=== PATIENT | female | born 1985 | race Caucasian/White ===

== ENCOUNTER 2020-08-04 02:13 | Inpatient (IN) | payer MEDICAID ==
[2020-08-04] MEDS ORDERED: OXYTOCIN/SODIUM CHLORIDE 500 ML IV PRN (02:46)
[2020-08-04] MEDS ORDERED: METHYLERGONOVINE 0.2 MG/ML VIAL IM PRN (02:46)
[2020-08-04] MEDS ORDERED: TRANEXAMIC ACID 1,000 MG in SODIUM CHLORIDE 0.9% 100ML 100 ML IV PRN (02:46)
[2020-08-04] MEDS ORDERED: CARBOPROST TROMETHAMINE 250 MCG/ML AMP IM PRN (02:46)
[2020-08-04] MEDS ORDERED: SODIUM CHLORIDE FLUSH 0.9% 10 ML SYRINGE IVP PRN (02:46)
[2020-08-04] MEDS ORDERED: OXYTOCIN 10 UNIT/ML VIAL IM PRN (02:46)
[2020-08-04] MEDS ORDERED: LIDOCAINE-MPF 1% 30 ML VIAL ID PRN (02:46)
[2020-08-04] MEDS ORDERED: miSOPROStoL 200 MCG TABLET BC PRN (02:46)
[2020-08-04] MEDS ORDERED: NALOXONE 0.4 MG/ML VIAL IVP PRN (02:54)
[2020-08-04] MEDS ORDERED: NALBUPHINE 10 MG/ML AMP IVP PRN (02:54)
[2020-08-04] MEDS ORDERED: diphenhydrAMINE INJ 50 MG/ML VIAL IVP PRN (02:54)
[2020-08-04] MEDS ORDERED: ePHEDrine 50 MG/ML VIAL IVP PRN (02:54)
[2020-08-04] MEDS ORDERED: ONDANSETRON 4 MG/2 ML VIAL IVP PRN (02:54)
[2020-08-04] MEDS ORDERED: METOCLOPRAMIDE 10 MG/2 ML VIAL IVP PRN (02:54)
[2020-08-04] MEDS ORDERED: LACTATED RINGERS 1,000 ML IV SCH (03:00)
[2020-08-04 03:13] LABS: HGB - HEMOGLOBIN 14.1 g/dL (12.0-16.0); LYMPHOCYTES % (AUTO) 13.8 %; MEAN CORPUSCULAR HEMOGLOBIN 32.2 pg (27.0-31.0); MEAN CORPUSCULAR HGB CONC 34.7 g/dL (32.0-36.0); MEAN CORPUSCULAR VOLUME 92.7 fL (81.0-99.0); MEAN PLATELET VOLUME 10.2 fL (7.9-10.8); MONOCYTES % (AUTO) 5.4 %; PLT - PLATELET COUNT 137 10^3/uL (130-450); RED BLOOD COUNT 4.38 10^6/uL (4.20-5.40); RED CELL DISTRIBUTION WIDTH 14.6 % (12.0-15.0); WHITE BLOOD COUNT 12.8 x10^3/uL (4.8-10.8)
[2020-08-04 03:14] LABS: BASOPHILS % (AUTO) 0.3 %; EOSINOPHILS # (AUTO) 0.1 10^3/uL (0.0-0.7); EOSINOPHILS % (AUTO) 0.5 %; LYMPHOCYTES # (AUTO) 1.8 10^3/uL (1.5-3.5); MONOCYTES # (AUTO) 0.7 10^3/uL (0.0-1.0); NEUTROPHILS # (AUTO) 10.1 10^3/uL (1.5-6.6)
--- NOTE | 2020-08-04 03:23 | HISTORY & PHYSICAL EXAMINATION ---
Admit History - Visit Reason Visit Reason: Contractions - : 4 Parity: 2 Premature: 0 Ectopic: 0 : 1 Care: positive: Other ([facility]- after transfer of care at 38 weeks. Care has been adequate) Risk/History: positive: Genital herpes (on acyclovir, no active lesions), Other (episx2, one Vac assist) Complications This : positive: None - Mother's Labs Mother's Blood Type: positive: O Mother's RH: positive: Negative GBS: positive: Group B Step Negative Rubella Status: positive: Immune - Other Maternal History Other Maternal History: 35yo at 40.2wks gestation who presents to Labor and Delivery for complaints of contractions that started yesterday morning, but got noticeably more intense around 1900. Reports movement Denies VB/LOF care-transfered to [facility] at 38.0 weeks following a displacement from the [facility], previous care has been adequate Complications *Rh Negative- Rhogam on 06/04/2020 Dating Criteria *BEE by LMP for 08/02/2020 OB Hx *G1: 2008- TAB *G2: 2010 - male 8#1oz. Episiotomy/vacuum *G3: 2018 - female 9#4oz. Episiotomy *G4: current Medications * vitamin-daily *Famotidine 20mg- daily *Acyclovir 400mg- daily Allergies *NKDA Medical History *HSV-2: positive Surgical History *None Family History *Non contributory Social History *Does not have custody of first child, who lives with her mother. Relationship is amicable and amends are being made. Does have custody of daughterTricia and appropriate maternal behaviors are noted in clinic. 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 Desires epidural. FOB: Andrew. Baby BOY: Walter Santamaria. (Daughter Tricia at home. History of two epis) pp contraception: Desires Christy PAP: 12/27/2019- HPV neg (awaiting pathology report) SVE per RN: 6cm/bulging bag Vertex by Naima EFW by naima: 7.5# FHTs- 130 baseline with periods of moderate variability without accelerations, otherwise moderate with 15x15 accels, and no decels noted Assessment *35yo at 40.2wks gestation who presents to Labor and Delivery in active labor * Heart Tones- Category I Plan *Admit to L&D *Monitoring- Continuous *Comfort measures available- position changes, whirlpool tub, fentanyl, and epidural per maternal preference *Diet/Activity- per maternal preference *Anticipate Meds/Allgy - Allergies Allergies/Adverse Reactions: Allergies Allergy/AdvReac Type Severity Reaction Status Date / Time No Known Drug Allergies Allergy Verified 08/04/20 02:51 Review of Systems - All Other Systems All Other Systems: reports: Reviewed and negative Physical - Abdominal Exam Vital Signs: Temp Pulse Resp BP Pulse Ox 36.7 C 97 20 132/83 H 98 08/04/20 02:21 08/04/20 02:21 08/04/20 02:21 08/04/20 02:21 08/04/20 02:21 Contraction Frequency (min/apart): 2-4 Contraction Intensity: positive: Moderate to strong Uterine Resting Tone: positive: Soft - Monitoring Heart Rate Baseline: 130 Strip Review: positive: Category I - Presentation Presentation: positive: Vertex - Vaginal Exam Membranes: positive: Membranes intact Dilation (in cm): 6 Effacement (%): 80 Station: positive: -1 Cervical Position: positive: Midposition Plan for Labor - Plan For Labor I expect patient to be DC'd or transferred within 96 hours.: Yes
--- NOTE | 2020-08-04 05:14 | DELIVERY NOTE ---
Delivery Note - Labor Labor: positive: Spontaneous - Delivery Method Delivery Method: positive: Spontaneous vaginal delivery - Presentation Presentation: positive: Vertex - Nuchal Cord Nuchal Cord: positive: Present (loose, sommersaulted. True knot.) - Amniotic Fluid Description Amniotic Fluid Description: positive: Clear - Laceration Laceration: positive: 1st degree (left labial), 2nd degree (perineal) - Suture Suture Type: positive: Vicryl Suture Size: positive: 2-0, 3-0 - Delivery Outcome Delivery Outcome: positive: Livebirth - [place] : positive: Placed in direct skin contact with mother, Stimulated, [place] used [place] sex: positive: Male : 8 : 9 - Cord Cord: positive: 3 vessels - Placenta Placenta: positive: Intact, Spontaneous (trailing membranes) - Estimated Blood Loss Estimated Blood Loss (in cc): 250 - Post Delivery Events Post Delivery Events: positive: No post delivery events - Delivery Comments (Free Text/Narrative) Delivery Comments (Free Text/Narrative): Note: Labor: This 35 year old, , @40.2wks gestation by LMP, presented @ 0200 in active labor. Cervix was 6/80/-1/bulging bag and vertex. FHR pattern demonstrated 130 baseline in a Category I pattern. Normal labor course. Epidural desired, however, due to rapid progression, unable to obtain. Spontaneous pushing was noted shortly after 8/90/0 exam, then bulging bag was noted outside of the vagina at 0348. : Normal of a 3940gm male on 08/04/2020 @ 0351. Baby came in amniotic sac, which ruptured on delivery of body, fluid was moderate and clear. Nuchal present, and loose. True knot noted. The was placed on maternal abdomen, stimulated, dried and placed skin to skin. Apgars 8 at one minute and 9 at five minutes. The umbilical cord was allowed to stop pulsating at which time it was doubly clamped by CNM and cut by FOB. Pitocin administered via IV for hemostasis. Fundal massage and gentle cord traction applied for active third stage management. Cord blood was obtained. Placenta delivered spontaneously and intact at 0355, with trailing membranes at 0358. Three vessel cord. EBL 250mL. Fourth Stage: Uterine fundus firm and without excessive bleeding. The perineum, vagina, and cervix were inspected and found to have sustained a second degree perineal laceration and first degree left labial, which were repaired with the use of 2% lidocaine for local anesthesia, and were repaired under sterile conditions in standard fashion using a 2-0 vicryl and 3-0 vicryl. Vaginal examination following repair was done. Tissues well approximated. initiated. Family bonding well. Both mother and baby are in stable condition.
[2020-08-04] MEDS ORDERED: HYDROCORTISONE 1% CREAM 28 GM TUBE PR PRN (05:20)
[2020-08-04] MEDS ORDERED: WITCH HAZEL/GLYCERIN 1 PAD TOP PRN (05:20)
[2020-08-04] MEDS: ACETAMINOPHEN 500 MG TABLET PO SCH ×3 (06:01→21:43)
[2020-08-04] MEDS: IBUPROFEN 600 MG TABLET PO SCH ×3 (06:01→20:14)
[2020-08-04] MEDS ORDERED: SODIUM CHLORIDE FLUSH 0.9% 10 ML SYRINGE IVP SCH (09:00)
--- NOTE | 2020-08-04 18:04 | PROVIDER PROGRESS NOTE ---
Subjective - Subjective Pt reports feeling: Improved Subjective: Final Progress Note S: Siena is resting in bed, with baby asleep on her chest. She reports as going well, although they are still improving their technique. She denies significant pain in her abdomen or perineum, but reports taking tylenol and ibuprofen when available "just in case." Reports her bleeding as li ght, and reports being able to urinate without effort. and Andrew desire to go home as soon as appropriate for baby, due to wanting to get back to their 16month old daughter, Tricia, and for Andrew to be able to work. O: Fundus firm, lochia light VSS No breast tenderness or nipple tissue damage Maternal Blood Type: O neg; Baby Blood Type: A neg A: 34yp on Day 1 s/p this morning at 0351. Rhogam not indicated due to baby blood type Pain well controlled with PO meds Perineum healing within expected limits well P: Continue with routine care Evaluate for discharge home after 24 hours per Peds Objective - Vital Signs/Intake & Output Vital Signs: Vital Signs x48h Temp Pulse Resp BP 08/04/20 10:36 36.1 C L 88 18 130/78 Intake & Output: Intake & Output 08/01/20 08/02/20 08/03/20 08/04/20 23:59 23:59 23:59 23:59 Intake Total 2050 Output Total 600 Balance 1450 - Lab Results Fish Bones: 08/04/20 03:05 Other Labs: Lab Results x24hrs 08/04/20 08/04/20 Range/Units 03:05 03:05 WBC 12.8 H (4.8-10.8) x10^3/uL RBC 4.38 (4.20-5.40) 10^6/uL Hgb 14.1 (12.0-16.0) g/dL Hct 40.6 (37.0-47.0) % MCV 92.7 (81.0-99.0) fL MCH 32.2 H (27.0-31.0) pg MCHC 34.7 (32.0-36.0) g/dL RDW 14.6 (12.0-15.0) % Plt Count 137 (130-450) 10^3/uL MPV 10.2 (7.9-10.8) fL Neut # (Auto) 10.1 H (1.5-6.6) 10^3/uL Lymph # (Auto) 1.8 (1.5-3.5) 10^3/uL [place] # (Auto) 0.7 (0.0-1.0) 10^3/uL Eos # (Auto) 0.1 (0.0-0.7) 10^3/uL Baso # (Auto) 0.0 (0.0-0.1) 10^3/uL Absolute Nucleated RBC 0.00 x10^3/uL Nucleated RBC % 0.0 /100WBC Blood Type O NEGATIVE Antibody Screen NEGATIVE
[2020-08-05] MEDS: IBUPROFEN 600 MG TABLET PO SCH ×2 (02:05→08:05)
[2020-08-05] MEDS: ACETAMINOPHEN 500 MG TABLET PO SCH (08:06)
--- NOTE | 2020-08-05 08:34 | Discharge Plan ---
Discharge Plan Problem Reviewed?: Yes Disposition: Home, Self Care Condition: Good Diet: Regular Activity Restrictions: No Restrictions Shower Restrictions: No Driving Restrictions: No No Smoking: If you smoke, Please STOP! Call for help.
[2020-08-05 10:26] VITALS: BP 115/68
--- NOTE | 2020-08-05 10:43 | Labor Flowsheet ---
Labor Flowsheet Datetime Report Generated by CPN: 08/05/2020 10:43 Datetime: 08/05/2020 08:10 VITAL SIGNS NBP Sys/Ling/Mean (mmHg): 115 : 68 : 75 Pulse: 85 SpO2 (%): 100 Datetime: 08/04/2020 04:45 Respirations: 20 Datetime: 08/04/2020 04:31 Temperature (C): 36.7 Temperature Route: Oral Datetime: 08/04/2020 04:01 MEDICATIONS Medication Comments: Lidocaine for repair Datetime: 08/04/2020 03:58 Stage 2 Comments: trailing membranes removed with ring forceps by TRAM Brooks Datetime: 08/04/2020 03:55 Membranes Ruptured Date/Time: 08/04/2020 03:51 Datetime: 08/04/2020 03:51 Membrane Status: Ruptured Membranes Rupture Method: Spontaneous Amniotic Fluid Color: Clear Amniotic Fluid Amount: Large Amniotic Fluid Odor: Normal Pool: Positive Membrane Comments: SROM with delivery, born in intact caul with BOW SROM with delivery of body Datetime: 08/04/2020 03:49 PAIN Pain Scale: 10 Pain Presence: Intermittent Pain Type: Contraction; Pressure LaborFlag: Labor Datetime: 08/04/2020 03:48 VAGINAL EXAM Dilatation (cm): 10.0 Effacement (%): 100 Station: 3 Exam by: Todd CNM Vaginal Exam Comments: BBOW at introitus Datetime: 08/04/2020 03:47 Provider Reviewed Strip: No STAGE 2 Pushing: Urge to Push; Involuntary Pushing Pushing Position: Pushing with Contractions Pushing Progress: Descent with Pushing COMMUNICATION Communication: Provider at Bedside Provider Notified (Name): Todd CNM Notification Reason: Status Update; Status; Labor Status; Membrane Status; Uterine Activity Datetime: 08/04/2020 03:45 UTERINE ACTIVITY Monitor Mode: External Frequency (min): 2-2.5 Quality: Strong Duration (sec): 60-90 Pattern: Normal: <= 5 Contractions in 10 Minutes ASSESSMENT A Monitor Mode: Telemetry FHR Baseline Rate : 125 FHR Baseline Changes: No Baseline Change Variability: Moderate 6-25 bpm Accelerations: None Decelerations: Variable Actions for Decelerations: Sterile Vaginal Exam; Provider Notified Category: Category II Comments: Pt states urge to push Datetime: 08/04/2020 03:40 Cervix, Consistency: Soft Cervix, Position: Anterior Datetime: 08/04/2020 03:34 Comfort Measures: Breathing/Relaxation; Coaching; Family Support Datetime: 08/04/2020 03:20 PATIENT CARE IV/Blood Work: IV Started; IV Bolus Started Datetime: 08/04/2020 03:13 TEACHING Instructional Method: Verbal; Patient Instructed; Family/Support Person Instructed; Verbalized Unde rstanding Plan of Care: Plan of Care Discussed; Vaginal Delivery Unit Routine: [place] to Room; Infant Security; Phone/Cell Phone Use; Photography; Unit Personnel; H andwashing; Flu/Illness Precautions; Monitoring; IV Pumps; Safety/Fall Risk Prevention; Diet/Nu trition Services; Bathroom Privileges; Routine Time Outs; Medications Pain Management: Epidural; Pain Scale/Goals; Comfort Measures Datetime: 08/04/2020 03:11 Patient Care Comments: Labs drawn Datetime: 08/04/2020 03:00 Resting Tone (Palpate): Relaxed
--- NOTE | 2020-08-05 14:28 | DISCHARGE SUMMARY ---
Physician: Ciera Casanova MD DATE OF ADMISSION: 08/04/2020 DATE OF DISCHARGE: 08/05/2020 ADMISSION DIAGNOSES: Spontaneous labor at term. DISCHARGE DIAGNOSES: Status post spontaneous vaginal delivery. OPERATIONS AND PROCEDURES: On 08/04/2020, spontaneous vaginal delivery of a liveborn male. Estimate d blood loss was 250 mL and she had a second-degree laceration that was repaired. HOSPITAL COURSE: Patient was admitted in active spontaneous labor. She progressed rapidly and deliv ered uncomplicated. By day 1, she was eagerly requesting discharge home. She was eating, ambulating, urinating, and and defecating without problems. Her pain was well control led, mood was good, and she did not having any heavy bleeding. DISCHARGE EXAMINATION: Afebrile with normal vital signs. Alert and smiling, in no apparent distress . Abdomen is soft, nontender, nondistended. Fundus is nontender, and 2 cm below the umbilicus, firm . No lower extremity clubbing, cyanosis or edema. Post- hematocrit was not required as her ad mission hematocrit was 40.6. She was Rh negative and so was her baby, so she did not receive RhoGAM. She is rubella immune and has received her Tdap and flu vaccines. DISCHARGE DISPOSITION: Home. CONDITION: Good. FOLLOWUP: One week for a check. MEDICATIONS 1. Ibuprofen. 2. Colace p.r.n. TD: 08/05/2020 08:40
== END 2020-08-05 09:40 | disposition home or self-care (01) | DRG 807 ==
LOC: WFO 02:13 → FBP 02:15 → WFO 02:45 → FBP 02:46
PROVIDERS: ADMIT Advanced Practice Midwife; ATTEND Advanced Practice Midwife
PROC: 10E0XZZ Delivery of Products of Conception, External Approach (ICD-10-PCS; principal; 2020-08-04)
PROC: 0KQM0ZZ Repair Perineum Muscle, Open Approach (ICD-10-PCS; 2020-08-04)
DX: O98.32 Other infections with a predominantly sexual mode of transmission complicating childbirth (principal); Z37.0 Single live birth; O70.1 Second degree perineal laceration during delivery; O69.2XX0 Labor and delivery complicated by other cord entanglement, with compression, not applicable or unspecified; Z3A.40 40 weeks gestation of pregnancy
CPT/HCPCS: 36415; 85025; 86850; 86900; 86901; 99213; A9270; J7120

== ENCOUNTER 2021-11-04 08:00 | Outpatient (CLI) | payer MEDICAID | END 2021-11-04 23:59 | LOC: LAB 08:00 | PROVIDERS: ATTEND Family Medicine | DX: J06.9 Acute upper respiratory infection, unspecified (principal); Z20.822 Contact with and (suspected) exposure to COVID-19 ==

== ENCOUNTER 2021-11-19 08:00 | Outpatient (CLI) | payer MEDICAID | END 2021-11-19 23:59 | LOC: LAB 08:00 | PROVIDERS: ATTEND Physician Assistant Medical | DX: U07.1 COVID-19 (principal) ==

== ENCOUNTER 2022-10-24 17:45 | Outpatient (CLI) | payer MEDICAID | END 2022-10-24 17:46 | disposition critical access hospital (66) | LOC: EMS 17:45 | DX: R07.89 Other chest pain (principal); I48.91 Unspecified atrial fibrillation; K08.89 Other specified disorders of teeth and supporting structures; R05.9 Cough, unspecified | CPT/HCPCS: A0425; A0429; A0999 ==

== ENCOUNTER 2022-10-24 18:06 | Emergency (ER) | payer MEDICAID ==
[2022-10-24] MEDS ORDERED: SODIUM CHLORIDE 0.9% 1,000 ML IV STA (18:22)
[2022-10-24] MEDS ORDERED: diltiaZEM INJ 5 MG/ML VIAL IVP STA (18:23)
--- NOTE | 2022-10-24 18:46 | ED Physician Documentation ---
PD HPI DYSPNEA - Stated complaint Stated Complaint: ATRIAL FLUTTER - History obtained from History obtained from: Patient, EMS (EMS states the patient was in A. fib and then went to sinus rhythm for several minutes on route and then back into A. fib.), Caregiver (walk in clinic) - History of Present Illness Timing - onset: Today (The patient has had feeling of fever and body aches and some cough for 1 or 2 days but noted onset of feeling short of breath and anxious around 4:00 today. She went to the walk-in clinic to be seen about the cough. There they noted tachycardia and an EKG showed atrial fibrillation.) Timing - onset during: Light activity, Other (recent URI symptoms for 2 days.) Timing - details: Abrupt onset, Still present Inciting event(s): URI. No: Immobilization/travel Improved by: No: Rest Worsened by: Exertion, Coughing Associated symptoms: Cough, Palpitations (just today, but has had it similar anxious/dyspnea feeling intermittent in the past several weeks a few times, for minutes at a time.). No: Fever Similar symptoms before: No diagnosis Review of Systems Constitutional: reports: Myalgias. denies: Fever Nose: reports: Rhinorrhea / runny nose, Congestion Throat: denies: Sore throat Respiratory: reports: Dyspnea, Cough GI: reports: Nausea (with coughing hard at times the past 2 days.). denies: Vomiting, Diarrhea Musculoskeletal: denies: Extremity swelling Neurologic: denies: Near syncope PD PAST MEDICAL HISTORY - Past Medical History Cardiovascular: None Respiratory: None Endocrine/Autoimmune: None - Allergies Allergies/Adverse Reactions: Allergies Allergy/AdvReac Type Severity Reaction Status Date / Time No Known Drug Allergies Allergy Verified 08/04/20 02:51 - Living Situation Living Situation: reports: With spouse/s.o. Living Arrangement: reports: At home - Social History Smoking Status: Former smoker Does the pt drink ETOH?: No Does the pt have substance abuse?: No - Family History Family history: reports: CAD PD ED PE NORMAL - Vitals Vital signs reviewed: Yes (tachycardic at 120-150) - General General: Alert and oriented X 3, No acute distress, Well developed/nourished - HEENT HEENT: Pharynx benign - Neck Neck: Supple, no meningeal sign, No adenopathy - Cardiac Cardiac: No murmur, No rub. No: RRR (tachycardic) - Respiratory Respiratory: No respiratory distress, Clear bilaterally - Abdomen Abdomen: Soft, Non tender - Derm Derm: Normal color, Warm and dry - Extremities Extremities: No edema, No calf tenderness / cord - Neuro Neuro: Alert and oriented X 3, No motor deficit, Normal speech Eye Opening: Spontaneous Motor: Obeys Commands Verbal: Oriented GCS Score: 15 Results - Vitals Vitals: Vital Signs - 24 hr 10/24/22 10/24/22 10/24/22 18:36 18:45 20:31 Temperature 37.8 C Heart Rate 140 H 102 H 105 H Respiratory 16 19 21 Rate Blood Pressure 115/86 H 112/67 115/103 H O2 Saturation 98 98 98 Oxygen O2 Source Room air - EKG (time done) No standard instances Rate: Tachy Rhythm: Atrial fibrillation QRS: Normal Ischemia: Normal ST segments. No: ST elevation c/w ischemia, ST depression - Labs Labs: Laboratory Tests 10/24/22 10/24/22 10/24/22 18:40 18:40 18:40 WBC 10.5 RBC 4.85 Hgb 14.2 Hct 43.0 MCV 88.7 MCH 29.3 MCHC 33.0 RDW 13.6 Plt Count 224 MPV 10.7 Neut # (Auto) 7.1 H Lymph # (Auto) 2.4 [place] # (Auto) 0.8 Eos # (Auto) 0.2 Baso # (Auto) 0.0 Absolute Nucleated RBC 0.00 Nucleated RBC % 0.0 Sodium 140 Potassium 4.0 Chloride 108 Carbon Dioxide 25 Anion Gap 7.0 BUN 15 Creatinine 0.6 Estimated GFR (MDRD) 113 Glucose 98 Calcium 9.9 Magnesium 2.1 Total Bilirubin 0.8 AST 39 ALT 61 H Alkaline Phosphatase 57 Total Protein 7.0 Albumin 4.0 Globulin 3.0 Albumin/Globulin Ratio 1.3 Lipase 34 TSH 0.82 Nasal Adenovirus (PCR) Nasal B. parapertussis DNA (PCR) Nasal Coronavir 229E PCR Nasal Coronavir HKU1 PCR Nasal Coronavir NL63 PCR Nasal Coronavir OC43 PCR Nasal Enterovir/Rhinovir PCR Nasal Influenza B PCR Nasal Influenza A PCR Nasal Parainfluen 1 PCR Nasal Parainfluen 2 PCR Nasal Parainfluen 3 PCR Nasal Parainfluen 4 PCR Nasal RSV (PCR) Nasal B.pertussis DNA PCR Nasal C.pneumoniae (PCR) Star Human Metapneumo PCR Nasal M.pneumoniae (PCR) Nasal SARS-CoV-2 (PCR) 10/24/22 19:02 WBC RBC Hgb Hct MCV MCH MCHC RDW Plt Count MPV Neut # (Auto) Lymph # (Auto) [place] # (Auto) Eos # (Auto) Baso # (Auto) Absolute Nucleated RBC Nucleated RBC % Sodium Potassium Chloride Carbon Dioxide Anion Gap BUN Creatinine Estimated GFR (MDRD) Glucose Calcium Magnesium Total Bilirubin AST ALT Alkaline Phosphatase Total Protein Albumin Globulin Albumin/Globulin Ratio Lipase TSH Nasal Adenovirus (PCR) NOT DETECTED Nasal B. parapertussis DNA (PCR) NOT DETECTED Nasal Coronavir 229E PCR NOT DETECTED Nasal Coronavir HKU1 PCR NOT DETECTED Nasal Coronavir NL63 PCR NOT DETECTED Nasal Coronavir OC43 PCR DETECTED A Nasal Enterovir/Rhinovir PCR NOT DETECTED Nasal Influenza B PCR NOT DETECTED Nasal Influenza A PCR NOT DETECTED Nasal Parainfluen 1 PCR NOT DETECTED Nasal Parainfluen 2 PCR NOT DETECTED Nasal Parainfluen 3 PCR NOT DETECTED Nasal Parainfluen 4 PCR NOT DETECTED Nasal RSV (PCR) NOT DETECTED Nasal B.pertussis DNA PCR NOT DETECTED Nasal C.pneumoniae (PCR) NOT DETECTED Star Human Metapneumo PCR NOT DETECTED Nasal M.pneumoniae (PCR) NOT DETECTED Nasal SARS-CoV-2 (PCR) NOT DETECTED - Rads (name of study) chest xray Radiology: Prelim report reviewed (no acute process), See rad report PD Medical Decision Making - ED course Complexity details: reviewed results, considered differential (likely paroxysmal atrial fib with onset about 4 pm today. rate control acquired with iv diltiazem but is still atrial fib. Checking labs. Has clinically URI and presume illness is triggering the atrial fib. No obvious delta waves on ecg. ), d/w patient ED course: getting rate control with meds and see if converts with that. give iv fluids. eval for viral illness. care given over to planishing hammer operator ERMD. Departure - Departure Clinical Impression: Atrial fibrillation with rapid ventricular response, Viral URI with cough Condition: Stable Record reviewed to determine appropriate education?: Yes
[2022-10-24 19:01] LABS: ALBUMIN/GLOBULIN RATIO 1.3 (1.0-2.2); BILIRUBIN,TOTAL 0.8 mg/dL (0.2-1.0); CALCIUM 9.9 mg/dL (8.5-10.3); CREATININE 0.6 mg/dL (0.4-1.0); MAGNESIUM 2.1 mg/dL (1.7-2.8)
--- NOTE | 2022-10-24 19:59 | XRAY Report ---
PROCEDURE: Chest 1 View X-Ray INDICATIONS: cough and dyspnea TECHNIQUE: One view of the chest was acquired. COMPARISON: None. FINDINGS: Surgical changes and devices: None. Lungs and pleura: No pleural effusions or pneumothorax. Lungs are clear. Mediastinum: Mediastinal contours appear normal. Heart size is normal. Bones and chest wall: No suspicious bony lesions. Overlying soft tissues appear unremarkable. IMPRESSION: Chest without acute cardiopulmonary abnormalities or focal airspace disease. Reviewed by: Luis Felipe Bueno MD on 10/24/2022 7:57 PM [facility] Approved by: Luis Felipe Bueno MD on 10/24/2022 7:57 PM [facility] Station ID: [id number]
[2022-10-24 20:45] LABS: BASOPHILS % (AUTO) 0.4 %; EOSINOPHILS # (AUTO) 0.2 10^3/uL (0.0-0.7); EOSINOPHILS % (AUTO) 1.6 %; HGB - HEMOGLOBIN 14.2 g/dL (12.0-16.0); LYMPHOCYTES # (AUTO) 2.4 10^3/uL (1.5-3.5); LYMPHOCYTES % (AUTO) 23.1 %; MEAN CORPUSCULAR HEMOGLOBIN 29.3 pg (27.0-31.0); MEAN CORPUSCULAR VOLUME 88.7 fL (81.0-99.0); MEAN PLATELET VOLUME 10.7 fL (7.9-10.8); MONOCYTES # (AUTO) 0.8 10^3/uL (0.0-1.0); MONOCYTES % (AUTO) 7.8 %; NEUTROPHILS # (AUTO) 7.1 10^3/uL (1.5-6.6); NEUTROPHILS % (AUTO) 66.9 %; PLT - PLATELET COUNT 224 10^3/uL (130-450); RED BLOOD COUNT 4.85 10^6/uL (4.20-5.40); RED CELL DISTRIBUTION WIDTH 13.6 % (12.0-15.0); WHITE BLOOD COUNT 10.5 x10^3/uL (4.8-10.8)
[2022-10-24 20:51] LABS: CORONAVIRUS 229E-RESP PCR NOT DETECTED; CORONAVIRUS HKU1-RESP PCR NOT DETECTED; CORONAVIRUS NL63-RESP PCR NOT DETECTED
[2022-10-24 20:52] LABS: B. PARAPERTUSSIS- RESP PCR PAN NOT DETECTED; B. PERTUSSIS- RESP PCR PANEL NOT DETECTED; C. PNEUMONIAE- RESP PCR PANEL NOT DETECTED; CORONAVIRUS OC43-RESP PCR DETECTED; HUMAN METAPNEUMOVIRUS NOT DETECTED; INFLUENZA A- RESP PCR PANEL NOT DETECTED; INFLUENZA B - RESP PCR PANEL NOT DETECTED; M. PNEUMONIAE- RESP PCR PANEL NOT DETECTED; PARAINFLUENZA VIRUS 1 NOT DETECTED; PARAINFLUENZA VIRUS 2 NOT DETECTED; PARAINFLUENZA VIRUS 3 NOT DETECTED; PARAINFLUENZA VIRUS 4 NOT DETECTED; RHINOVIRUS/ENTEROVIRUS NOT DETECTED; RSV- RESP PCR PANEL NOT DETECTED; SARS-CoV-2 -RESP PCR PANEL NOT DETECTED
[2022-10-24] MEDS ORDERED: HYDROmorphone 1 MG/ML CARPUJECT IVP STA (22:19)
[2022-10-24] MEDS ORDERED: PROPOFOL 200 MG/20 ML VIAL IVP STA (22:19)
[2022-10-24] MEDS ORDERED: AMOX/CLAV 875 MG/125 MG TABLET PO STA (22:39)
--- NOTE | 2022-10-24 22:41 | ED Physician Documentation ---
ED Addendum - Addendum Addendum: 10/24/22 22:39 I received signout on this patient from Dr. Moreno at end of his shift. Please see his note for detailed history and physical. In brief, patient presented to the clinic earlier today for tooth ache and upper respiratory infection symptoms but was found to have tachycardia to the extent that she was advised to come to the emergency department for further evaluation. Here, in the ER, she was found to be in a new onset of rapid atrial fibrillation. She was given IV diltiazem with improvement in her heart rate from 140s to 160s down to upper 90s to 110s. No remarkable findings on blood tests nor on chest x-ray. Her nasal respiratory PCR was positive for coronavir us OC 43. She continued to be in atrial fibrillation earlier my shift, and I discussed options with patient including further observation in the ER, discharged with prescriptions for oral diltiazem as well as a blood thinner such as warfarin or Eliquis, or else electrocardioversion in the ER. This third option was what I recommended, and after she discussed with a family member, she agrees with e lectrocardioversion. However, when I went into the room with the consent form, I noted that she had converted to normal sinus rhythm and thus she is subsequently discharged. She reminds me that one of her initial reasons for going to the clinic was for a tooth ache and she is requesting an antibiotic. I do note tenderness to percussion of the right maxillary second molar with some decay; there is no erythema nor obvious swelling. She is given a dose of Augmentin in the emergency department and a prescription is electronically submitted to her pharmacy of choice. Return precautions are discussed and I advised her to follow-up with her primary care provider even if asymptomatic for reevaluation of her paroxysmal atrial fibrillation.
[2022-10-24 23:03] VITALS: BP 127/91
== END 2022-10-24 23:02 | disposition home or self-care (01) ==
LOC: EDUNIT# → ED 18:06
DX: I48.91 Unspecified atrial fibrillation (principal); J06.9 Acute upper respiratory infection, unspecified; B97.29 Other coronavirus as the cause of diseases classified elsewhere; K08.89 Other specified disorders of teeth and supporting structures; Z20.822 Contact with and (suspected) exposure to COVID-19
CPT/HCPCS: 36415; 71045; 80053; 83690; 83735; 84443; 85025; 87633; 93005; 96361; 96374; 99284; A9270

== ENCOUNTER 2022-10-31 17:11 | Outpatient (CLI) | payer MEDICAID | END 2022-10-31 23:59 | disposition EMS.NT | LOC: EMS 17:11 | DX: R00.0 Tachycardia, unspecified (principal); R06.4 Hyperventilation ==

== ENCOUNTER 2023-04-24 07:35 | Day surgery (SDC) | payer MEDICAID ==
[~2023-04-24 07:35] MED LIST: ACETAMINOPHEN 500 MG TABLET PO ONE; BUPIVACAINE 0.25% PF 30 ML VIAL ONE; LIDOCAINE 1%-EPI 1:100000 20 ML MDV ONE; METHYLENE BLUE 0.5% 50 MG/10 ML AMPULE ONE; MIDAZOLAM 2 MG/2 ML VIAL ONE; PROPOFOL 200 MG/20 ML VIAL IVP ONE; ROCURONIUM 50 MG/5 ML VIAL ONE; fentaNYL 100 MCG/2 ML VIAL ONE
[2023-04-24 07:46] LABS: HCG UR QUAL NEGATIVE
[2023-04-24] MEDS ORDERED: LACTATED RINGERS 1,000 ML IV ONE ×3 (07:53→11:21)
--- NOTE | 2023-04-24 08:11 | ANESTHESIA ---
Pre-Anesthesia VS, & Labs - Diagnosis desires sterilization - Procedure laparoscopic salphingectomy Vital Signs: Temp Pulse Resp BP Pulse Ox O2 Flow Rate 36.5 C 95 14 113/63 97 04/24/23 07:46 04/24/23 07:46 04/24/23 07:46 04/24/23 07:46 04/24/23 07:46 Height: 5 ft 11 in Weight (kg): 87 kg Body Mass Index: 26.7 BMI Classification: Overweight - NPO >8 hours - Is Patient ?: No Home Medications and Allergies Home Medications: Ambulatory Orders Acyclovir 400 mg PO DAILY PRN 04/20/23 Cyanocobalamin (Vitamin B-12) [Vitamin B-12] 1,000 mcg PO DAILY 04/20/23 Ibuprofen [Motrin] 600 mg PO Q6H PRN 04/20/23 Magnesium 250 mg PO DAILY 04/20/23 Acyclovir 400 mg PO DAILY PRN 04/20/23 Cyanocobalamin (Vitamin B-12) [Vitamin B-12] 1,000 mcg PO DAILY 04/20/23 Ibuprofen [Motrin] 600 mg PO Q6H PRN 04/20/23 Magnesium 250 mg PO DAILY 04/20/23 Allergies/Adverse Reactions: Allergies Allergy/AdvReac Type Severity Reaction Status Date / Time No Known Drug Allergies Allergy Verified 08/04/20 02:51 Anes History & Medical History - Anesthetic History Anesthesia Complications: reports: No previous complications - Medical History Cardiovascular: reports: Atrial fibrillation Pulmonary: reports: None Gastrointestinal: reports: GERD Urinary: reports: None Musculoskeletal: reports: None Endocrine/Autoimmune: reports: None Skin: reports: None, Other Smoking Status: Former smoker History of Cancer?: No Exam General: Alert, Oriented x3 Dental: WNL Neck Mobility: Normal Mallampati classification: II Thyromental Distance: greater than 6 cm Respiratory: Lungs clear Cardiovascular: Regular rate, Normal S1, Normal S2 Plan Anesthesia Type: General Consent for Procedure(s) Verified and Reviewed: Yes Code Status: Attempt Resuscitation ASA classification: 2-Mild systemic disease Is this case an emergency?: No
[2023-04-24] MEDS ORDERED: METOCLOPRAMIDE 10 MG/2 ML VIAL IVP PRN (08:15)
[2023-04-24] MEDS ORDERED: fentaNYL 100 MCG/2 ML VIAL IVP PRN (08:15)
[2023-04-24] MEDS ORDERED: HYDROmorphone 0.5 MG/0.5 ML SYRINGE IVP PRN (08:15)
[2023-04-24] MEDS ORDERED: ATROPINE ABBOJECT 1 MG/10 ML SYRINGE IVP PRN (08:15)
[2023-04-24] MEDS ORDERED: MORPHINE 2 MG/ML CARPUJECT IVP PRN (08:15)
[2023-04-24] MEDS ORDERED: ePHEDrine 50 MG/ML VIAL IVP PRN (08:15)
[2023-04-24] MEDS ORDERED: NALOXONE 0.4 MG/ML VIAL IVP PRN (08:15)
[2023-04-24] MEDS ORDERED: ONDANSETRON 4 MG/2 ML VIAL IVP PRN (08:15)
[2023-04-24] MEDS ORDERED: miSOPROStoL 200 MCG TABLET ONE (08:36)
[2023-04-24] MEDS ORDERED: CARBOPROST TROMETHAMINE 250 MCG/ML AMP IM ONE (08:36)
[2023-04-24] MEDS ORDERED: METHYLERGONOVINE 0.2 MG/ML VIAL ONE (08:36)
[2023-04-24] MEDS ORDERED: LACTATED RINGERS 1,000 ML IV SCH (09:00)
[2023-04-24] MEDS ORDERED: LIDOCAINE-PF 2% 10 ML AMP SUBQ ONE (09:10)
[2023-04-24] MEDS ORDERED: ONDANSETRON 4 MG/2 ML VIAL ONE (09:42)
[2023-04-24] MEDS ORDERED: KETOROLAC 30 MG/ML VIAL ONE (09:42)
[2023-04-24] MEDS ORDERED: DEXAMETHASONE 4 MG/ML VIAL ONE (09:42)
[2023-04-24] MEDS ORDERED: LIDOCAINE 1%-EPI 1:100000 20 ML MDV SUBQ ONE ×2 (10:14)
[2023-04-24] MEDS ORDERED: BUPIVACAINE 0.25% PF 30 ML VIAL SUBQ ONE ×2 (10:14)
[2023-04-24] MEDS ORDERED: ROCURONIUM 50 MG/5 ML VIAL ONE (10:20)
[2023-04-24] MEDS ORDERED: SUGAMMADEX 200 MG/2 ML VIAL IVP ONE (10:33)
--- NOTE | 2023-04-24 11:07 | ANESTHESIA POST OP EVALUATION ---
Anesthesia Post Eval - Post Anesthesia Eval Vitals: Last Vital Signs Temp 37.1 C 04/24/23 10:45 Pulse 75 04/24/23 11:05 Resp 17 04/24/23 11:05 BP 117/80 04/24/23 11:05 Pulse Ox 98 04/24/23 11:05 O2 Flow Rate CV Function Including HR & BP: Stable Pain Control: Satisfactory Nausea & Vomiting: Negative Mental Status: Baseline Respiratory Status: Airway Patent Hydration Status: Satisfactory Anesthesia Complications: None
[2023-04-24] MEDS ORDERED: traMADol 50 MG TABLET PO ONE ×2 (12:00→12:06)
[2023-04-24 12:14] VITALS: BP 99/77
--- NOTE | 2023-04-24 19:52 | OPERATIVE REPORT ---
Operative Report - General Procedure Date: 04/24/23 Planned Procedure: Laparoscopic bilateral salpingectomy Christy IUS removal Pre-Op Diagnosis: Multiparity, desires permanent sterilization Procedure Performed: Laparoscopic bilateral sapingectomy Christy IUS removal Post Op Diagnosis: Multiparity, desires permanent sterilization - Procedure Note Primary Surgeon: Olivia Marie DO Secondary Surgeon: Kristine Garcia NP;assistance required for retraction and safe completion Anesthesia Provider: Maya Greenberg CRNA Anesthesia Technique: General ET tube Pathology: Bilateral oviducts Estimated Blood Loss (mL): 40 Indications: Multiparity, desires permanent sterilization Findings: Normal appearing uterus, tubes, ovaries Complications: None - Other Other Information/Narrative: Patient taken to OR where GETA obtained without difficulty. Placed in dorsal lithotomy position and prepped and draped in sterile fashion. [place] speculum placed in vagina and anterior lip of cervix grasped with single tooth tenaculum. Uterus sounded to 8cm. Herzio uterine manipulator placed into uterus. Speculum and tenaculum removed. Attention then turned to abdomen where 5mm vertical skin incision made in umbilical fold. Veress needle carefully introduced into peritoneal cavity. Intraperitoneal placement confirmed with drop test and drop in intraabdominal pressure with CO2 gas insufflation. Trocar and sleeve advanced without difficulty into abdomen where intraabdominal placement confirmed with laparoscope. Two additional 5mm incisions made in pelvis bilaterally and trocars introduced under direct visualization. 1% lidocaine with epinephrine/0.25% marcaine injection prior to skin incisions x3. Aforementioned findings noted. Left fallopian tube grasped and LigaSure device used for transection along mesosalpinx up to uterine cornu. This was repeated on the right fallopian tube. Tubes removed through left 5mm port. Hemostasis at all dissection sites. Trocars removed under direct visualization. Pneumoperitoneum released. Umbilical trocar removed. 5mm incisions x3 were closed with 4-0 Monocryl and dermabond. Sponge, lap, needle, and instrument counts were correct x2. Patient taken to PACU in stable condition.
== END 2023-04-24 07:36 | disposition home or self-care (01) ==
LOC: SDS 07:35
PROVIDERS: ATTEND Obstetrics & Gynecology
PROC: 0UT74ZZ Resection of Bilateral Fallopian Tubes, Percutaneous Endoscopic Approach (ICD-10-PCS; principal; 2023-04-24 07:30)
DX: Z30.2 Encounter for sterilization (principal); Z32.02 Encounter for pregnancy test, result negative; Z87.891 Personal history of nicotine dependence
CPT/HCPCS: 58661; 81025; A9270; J7120